=== PATIENT | male | born 1965 | race Two or more races ===

== ENCOUNTER 2021-12-22 09:55 | Outpatient (REF) | payer OTHER, SELFPAY | END 2021-12-22 09:56 | disposition home or self-care (01) | LOC: HO.BBR 09:55 | PROVIDERS: PCP Internal Medicine; Visit Provider Internal Medicine Medical Oncology | DX: D75.1 Secondary polycythemia (principal) | CPT/HCPCS: 85014; 85018; 99195 ==

== ENCOUNTER 2022-04-29 09:46 | Outpatient (REF) | payer OTHER, SELFPAY | END 2022-04-29 09:47 | disposition home or self-care (01) | LOC: HO.BBR 09:46 | PROVIDERS: Visit Provider Internal Medicine Medical Oncology | DX: D75.1 Secondary polycythemia (principal) | CPT/HCPCS: 85018; 99195 ==

== ENCOUNTER 2022-08-27 09:59 | Outpatient (REF) | payer OTHER, SELFPAY | END 2022-08-27 10:00 | disposition home or self-care (01) | LOC: HO.BBR 09:59 | PROVIDERS: Visit Provider Internal Medicine Medical Oncology | DX: D75.1 Secondary polycythemia (principal) | CPT/HCPCS: 85018; 99195 ==

== ENCOUNTER 2022-12-01 10:29 | Outpatient (REF) | payer OTHER, SELFPAY | END 2022-12-01 10:30 | disposition home or self-care (01) | LOC: HO.BBR 10:29 | PROVIDERS: Visit Provider Internal Medicine Medical Oncology | DX: D75.1 Secondary polycythemia (principal) | CPT/HCPCS: 85018; 99195 ==

== ENCOUNTER 2023-03-02 09:48 | Outpatient (REF) | payer OTHER, SELFPAY | END 2023-03-02 09:49 | disposition home or self-care (01) | LOC: HO.BBR 09:48 | PROVIDERS: PCP Internal Medicine; Visit Provider Internal Medicine Medical Oncology | DX: D75.1 Secondary polycythemia (principal) | CPT/HCPCS: 85014; 85018; 99195 ==

== ENCOUNTER 2023-05-31 09:43 | Outpatient (REF) | payer OTHER, SELFPAY | END 2023-05-31 09:44 | disposition home or self-care (01) | LOC: HO.BBR 09:43 | PROVIDERS: PCP Internal Medicine; Visit Provider Internal Medicine Medical Oncology | DX: D75.1 Secondary polycythemia (principal) | CPT/HCPCS: 85014; 85018; 99195 ==

== ENCOUNTER 2023-08-31 14:16 | Outpatient (REF) | payer OTHER, SELFPAY | END 2023-08-31 14:17 | disposition home or self-care (01) | LOC: HO.BBR 14:16 | PROVIDERS: PCP Internal Medicine; Visit Provider Internal Medicine Medical Oncology | DX: D75.1 Secondary polycythemia (principal) | CPT/HCPCS: 85018; 99195 ==

== ENCOUNTER 2023-12-02 11:15 | Outpatient (REF) | payer OTHER, SELFPAY | END 2023-12-02 11:16 | disposition home or self-care (01) | LOC: HO.BBR 11:15 | PROVIDERS: PCP Internal Medicine; Visit Provider Internal Medicine Medical Oncology | DX: D75.1 Secondary polycythemia (principal) | CPT/HCPCS: 85018; 99195 ==

== ENCOUNTER 2024-03-02 09:45 | Outpatient (REF) | payer OTHER, SELFPAY | END 2024-03-02 09:46 | disposition home or self-care (01) | LOC: HO.BBR 09:45 | PROVIDERS: PCP Internal Medicine; Visit Provider Internal Medicine Medical Oncology | DX: D75.1 Secondary polycythemia (principal) | CPT/HCPCS: 85018; 99195 ==

== ENCOUNTER 2024-05-31 09:49 | Outpatient (REF) | payer OTHER, SELFPAY ==
--- OUTSIDE RECORDS SUMMARY | 2024-05-31 11:16 | XMS_ITS | Clinical Summary ---
Author Organization [facility] Address [address] [place] [address] Care Team Providers Care Spindle Repairer Name Role Phone Unavailable Primary Care Provider Unavailabl e Surgical History Surgery Date Site/Laterality Comments CIRCUMCISION, NON- PROCEDURE: CIRCUMCISION, NOT Family History Medical History Relation Name Comments Diabetes Father Heart attack Father Hypertension Mother Other cancer Sister 1 Relation Name Status Comments Father Mother Sister 1 Sister 2 Social History Tobacco Use Types Packs/Day Years Used Date Smoking Tobacco: Every Day Cigarettes Alcohol Use Standard Drinks/Week Comments Yes 0 (1 standard drink = 0.6 oz pur e alcohol) Sex and Gender Information Value Date Recorded Sex Assigned at Not on file Legal Sex Male 12:37 PM EST Gender Identity Not on file Sexual Orientation Not on file Obstetrics History Plan of Treatment Health Maintenance Due Date Last Done Comments Pneumococcal Vaccine: 50+ Ye ars (1 of 2 - PCV) 06/15/1982 Pneumococcal Vaccine: Pediat rics (0 to 5 Years) and At-Risk Patients (6 to 64 Years) (1 of 2 - PCV) 06/15/1982 DTaP,Tdap,and Td Vaccines (2 - Td or Tdap) 03/29/2010 03/29/2000 Zoster Vaccines (1 of 2) 06/15/2013 Cholesterol Screening (Lipid Panel) 02/24/2022 Colorectal Cancer Screening: Colonoscopy 02/24/2022 Depression Screening 02/24/2022 HIV Screening 02/24/2022 Hepatitis C Screening 02/24/2022 Social Influencers of Health Screening 02/24/2022 COVID-19 Vaccine ( - 2023-2 5 season) 2023 Influenza Vaccine (#1) 2023 RSV Immunization Patients 60 + Years Old (1 - 1-dose 75+ series) 06/15/2038 HIB Vaccines Aged Out No longer eligi ble based on patient's age to complete this topic HPV Vaccines Aged Out No longer eligi ble based on patient's age to complete this topic Hepatitis A Vaccines Aged Out No long er eligible based on patient's age to complete this topic Hepatitis B Vaccines Aged Out No long er eligible based on patient's age to complete this topic IPV Vaccines Aged Out No longer eligi ble based on patient's age to complete this topic MMR Vaccines Aged Out No longer eligi ble based on patient's age to complete this topic Meningococcal ACWY Vaccine Aged Out N o longer eligible based on patient's age to complete this topic Meningococcal B Vacine Aged Out No lo nger eligible based on patient's age to complete this topic RSV Immunization Patients Un modesto 20 months Aged Out No longer eligible b ased on patient's age to complete this topic Varicella Vaccines Aged Out No longer eligible based on patient's age to complete this topic
== END 2024-05-31 09:50 | disposition home or self-care (01) ==
LOC: HO.BBR 09:49
PROVIDERS: PCP Internal Medicine; Visit Provider Internal Medicine Medical Oncology
DX: D75.1 Secondary polycythemia (principal)
CPT/HCPCS: 85018; 99195

== ENCOUNTER 2024-09-01 09:53 | Outpatient (REF) | payer OTHER, SELFPAY ==
--- OUTSIDE RECORDS SUMMARY | 2024-09-01 10:37 | XMS_ITS | Clinical Summary ---
Author Organization [facility] Address [address] [place] [address] Care Team Providers Care Credit Officer Name Role Phone Unavailable Primary Care Provider [...] - 2023-2 5 season) 2023 Influenza Vaccine (Season Ended) 2024 RSV Immunization Adult Patie nts (1 - 1-dose 75+ series) 06/15/2038 HIB [...] age to complete this topic Meningococcal B Vaccine Aged Out No l onger eligible based on patient's age to complete this topic RSV Immunization Patients Un modest[place] 20 months Aged Out No longer eligible b ased on patient's age to complete this topic Varicella Vaccines Aged Out No longer eligible based on patient's age to complete this topic
== END 2024-09-01 09:54 | disposition home or self-care (01) ==
LOC: HO.BBR 09:53
PROVIDERS: PCP Internal Medicine; Visit Provider Internal Medicine Medical Oncology
DX: D75.1 Secondary polycythemia (principal)
CPT/HCPCS: 85018; 99195

== ENCOUNTER 2024-12-06 12:59 | Outpatient (REF) | payer OTHER, SELFPAY ==
--- OUTSIDE RECORDS SUMMARY | 2024-12-06 15:58 | XMS_ITS | Clinical Summary ---
[facility] Organization [facility] [place] Address [address] [place] [address] Care Team Providers Care Dobie Worker Name Role Phone Unavailable Primary Care Provider [...] Health Maintenance Due Date Last Done Comments DTaP,Tdap,and Td Vaccines (2 - Td or Tdap) 03/29/2010 03/29/2000 Pneumococcal Vaccine: 50+ Ye ars (1 of 1 - PCV) 06/15/2013 Zoster Vaccines (1 of 2) 06/15/2013 Depression Screening 03/29/2024 COVID-19 Vaccine ( - 2023-2 5 season) 2024 Influenza Vaccine (#1) 2024 RSV Immunization Adult Patie nts (1 [...]
== END 2024-12-06 13:00 | disposition home or self-care (01) ==
LOC: HO.BBR 12:59
PROVIDERS: PCP Internal Medicine; Visit Provider Internal Medicine Medical Oncology
DX: D75.1 Secondary polycythemia (principal)
CPT/HCPCS: 85018; 99195

== ENCOUNTER 2025-03-07 09:30 | Outpatient (REF) | payer OTHER, SELFPAY | END 2025-03-07 09:31 | disposition home or self-care (01) | LOC: HO.BBR 09:30 | PROVIDERS: PCP Internal Medicine; Visit Provider Internal Medicine Medical Oncology | DX: D75.1 Secondary polycythemia (principal) | CPT/HCPCS: 85018; 99195 ==